=== PATIENT | female | born 1935 | race Caucasian/White ===

== ENCOUNTER 2020-03-16 10:13 | Day surgery (SDC) | payer MEDICARE ==
[2020-03-15 09:07] LABS: BASOPHILS % (AUTO) 1 % (0-1); EOSINOPHILS % (AUTO) 13 % (1-7); LYMPHOCYTES % (AUTO) 23 % (22-44); MEAN CORPUSCULAR HEMOGLOBIN 34.1 pg (27.0-34.8); MEAN CORPUSCULAR HGB CONC 33.9 g/dL (32.4-35.8); MEAN PLATELET VOLUME 7.6 fL (7.4-10.4); MONOCYTES % (AUTO) 8 % (2-9); NEUTROPHILS % (AUTO) 55 % (42-75); PLATELET COUNT 262 x10^3/uL (130-400); RED BLOOD COUNT 4.97 x10^6/uL (3.82-5.3); RED CELL DISTRIBUTION WIDTH 13.3 % (9.6-15.2)
[2020-03-15 09:08] LABS: HCT (SEDRATE) 49.3 % (34.6-47.8)
[2020-03-15 09:12] LABS: ANION GAP 7 mmol/L (5-15); CALCIUM 9.6 mg/dL (8.5-10.1); CHLORIDE 111 mmol/L (98-107); CREATININE 1.11 mg/dL (0.55-1.02); MD NO; PROTHROMBIN TIME 10.6 Seconds (9.6-11.5)
[~2020-03-16] VITALS: Ht 152.4 cm; Wt 55.5 kg
[~2020-03-16 10:13] MED LIST: ALEN10TA10 PO; HIGH BLOOD PRESSURE; HYDR-3245 PO; LOVA10TA PO; MORP-52 PO; OMEP10CA2 PO; ONDA4TAB10 PO; OXYC-302 PO; SENN-177 PO
[2020-03-16] MEDS ORDERED: PROPOFOL 10 MG/ML, 20ML ONE (10:34)
[2020-03-16] MEDS ORDERED: DEXAMETHASONE 4 MG/ML, 1ML ONE (10:34)
[2020-03-16] MEDS ORDERED: CEFAZOLIN 1,000 MG ONE (10:34)
[2020-03-16] MEDS ORDERED: SUGAMMADEX 200 MG/2 ML IVPush ONE (10:34)
[2020-03-16] MEDS ORDERED: ROCURONIUM 10MG/ML,5ML ONE (10:34)
[2020-03-16 10:42] VITALS: BP 164/76
[2020-03-16] MEDS ORDERED: CHLORHEXIDINE 15 ML UDC ONE (10:47)
[2020-03-16] MEDS ORDERED: VANCOMYCIN 1,000 MG in SODIUM CHLORIDE 0.9% 250 ML IV ONE (11:00)
[2020-03-16] MEDS ORDERED: CHLORHEXIDINE 15 ML UDC MM ONE (11:00)
[2020-03-16] MEDS ORDERED: LACTATED RINGERS 1,000 ML IV SCH (11:00)
[2020-03-16] MEDS ORDERED: MIDAZOLAM 1 MG/ML, 2ML ONE (11:06)
[2020-03-16] MEDS ORDERED: FENTANYL PF 100 MCG/2ML ONE ×2 (11:06→14:17)
[2020-03-16] MEDS ORDERED: EPINEPHRINE 1 MG/ML, 1ML ONE (12:32)
[2020-03-16] MEDS ORDERED: BUPIVACAINE/PF 0.5% ONE (12:32)
[2020-03-16] MEDS ORDERED: HYDROmorphone 1 MG/ML, 1ML INJ IVPush PRN (13:30)
[2020-03-16] MEDS ORDERED: FENTANYL PF 100 MCG/2ML IV PRN (13:30)
[2020-03-16] MEDS ORDERED: hydrALAzine 20 MG/ML, 1ML IV PRN (13:30)
[2020-03-16] MEDS ORDERED: LABETALOL 5MG/ML, 20ML IV PRN (13:30)
[2020-03-16] MEDS ORDERED: ACETAMINOPHEN 325 MG TABLET PO PRN (13:30)
[2020-03-16] MEDS ORDERED: ONDANSETRON 2MG/ML, 2ML IVPush PRN ×2 (13:30→18:00)
[2020-03-16] MEDS: MEPERIDINE/PF 25MG/0.5ML IVPush PRN ×2 (13:55→14:01)
[2020-03-16] MEDS ORDERED: MEPERIDINE/PF 25MG/ML,1ML ONE (13:56)
[2020-03-16] MEDS ORDERED: OXYcodone 5 MG/5 ML ORAL.SOL UDC ONE ×2 (13:56→14:38)
[2020-03-16] MEDS ORDERED: METHOCARBAMOL 1,000 MG in DEXTROSE 5% 100 ML IV PRN (14:00)
[2020-03-16] MEDS: OXYcodone 5 MG/5 ML ORAL.SOL UDC PO PRN ×2 (14:02→14:20)
[2020-03-16] MEDS ORDERED: OMNIPAQUE 180 MG/ML, 20ML VIAL ONE (15:10)
[2020-03-16] MEDS ORDERED: ACETAMINOPHEN 325 MG TABLET ONE (16:09)
== END 2020-03-16 17:30 | disposition home or self-care (01) ==
LOC: OUT 10:13
PROVIDERS: ATTEND Orthopaedic Surgery Orthopaedic Surgery of the Spine
DX: M80.88XA Other osteoporosis with current pathological fracture, vertebra(e), initial encounter for fracture (principal); M48.061 Spinal stenosis, lumbar region without neurogenic claudication; Z88.2 Allergy status to sulfonamides; Z88.1 Allergy status to other antibiotic agents; Z20.828 Contact with and (suspected) exposure to other viral communicable diseases; Z79.899 Other long term (current) drug therapy; Z72.89 Other problems related to lifestyle
CPT/HCPCS: 22514; 36415; 71046; 72100; 80048; 83036; 85025; 85610; 85651; 85730; 87635; 88304; 88311; 93005; C1713; J0171; J0690; J1100; J2175; J2250; J2704; J2800; J3010; J3370; J7050; J7120; Q9965